=== PATIENT | male | born 1955 | race Caucasian/White ===

== ENCOUNTER 2021-04-05 17:05 | Emergency (ER) | payer OTHER ==
[2021-04-05 18:33] LABS: BASOPHILS # (AUTO) 0.1 10^3/uL (0.0-0.1); BASOPHILS % (AUTO) 1.2 %; EOSINOPHILS # (AUTO) 0.5 10^3/uL (0.0-0.7); EOSINOPHILS % (AUTO) 6.1 %; HCT - HEMATOCRIT 44.8 % (42.0-52.0); LYMPHOCYTES # (AUTO) 1.8 10^3/uL (1.5-3.5); LYMPHOCYTES % (AUTO) 21.6 %; MEAN CORPUSCULAR HEMOGLOBIN 34.1 pg (27.0-31.0); MEAN CORPUSCULAR HGB CONC 33.5 g/dL (32.0-36.0); MEAN CORPUSCULAR VOLUME 101.8 fL (80.0-94.0); MEAN PLATELET VOLUME 10.7 fL (7.4-11.4); MONOCYTES # (AUTO) 0.5 10^3/uL (0.0-1.0); MONOCYTES % (AUTO) 6.2 %; NEUTROPHILS # (AUTO) 5.3 10^3/uL (1.5-6.6); NEUTROPHILS % (AUTO) 64.7 %; PLT - PLATELET COUNT 155 10^3/uL (130-450); RED CELL DISTRIBUTION WIDTH 11.9 % (12.0-15.0); WHITE BLOOD COUNT 8.3 x10^3/uL (4.8-10.8)
--- NOTE | 2021-04-05 18:33 | XRAY Report ---
PROCEDURE: Chest 1 View X-Ray INDICATIONS: Chest Pain TECHNIQUE: One view of the chest was acquired. COMPARISON: None FINDINGS: Surgical changes and devices: None. Lungs and pleura: No pleural effusions or pneumothorax. Hyperexpanded and hyperlucent lungs consiste nt with emphysema and COPD. No focal air space opacity identified. Mediastinum: Mediastinal contours appear normal. Heart size is normal. Bones and chest wall: No suspicious bony lesions. Overlying soft tissues appear unremarkable. IMPRESSION: No acute air space opacity identified. Findings COPD and emphysema. Reviewed by: Lamberto Goodrich MD on 04/05/2021 5:32 PM [facility] Approved by: Lamberto Goodrich MD on 04/05/2021 5:32 PM [facility] Station ID: [id number]
[2021-04-05 18:46] LABS: ALBUMIN 4.3 g/dL (3.2-5.5); ALBUMIN/GLOBULIN RATIO 1.3 (1.0-2.2); CALCIUM 9.4 mg/dL (8.5-10.3); CREATININE 0.8 mg/dL (0.6-1.2); POTASSIUM 4.3 mmol/L (3.5-5.0); TOTAL PROTEIN 7.5 g/dL (6.7-8.2)
[2021-04-05] MEDS ORDERED: IPRATROPIUM/ALBUTEROL 3 ML NEB INH STA (19:31)
[2021-04-05] MEDS ORDERED: predniSONE 20 MG TABLET PO STA (19:34)
--- NOTE | 2021-04-05 19:34 | ED Physician Documentation ---
History of Present Illness - Stated complaint Stated Complaint: SOA - Chief complaint Chief Complaint: Resp - Additonal information Additional information: 65-year-old male who has a history of COPD dependent on 2 L nasal cannula presents the emergency department with worsening shortness of air. He traveled here from [facility] 1 week ago. Unfortunately he did not travel with his Spiriva or Symbicort. He became in possession of the Symbicort today but still does not have the Spiriva. Since arriving here he has worsening shortness of air especially at night when supine. Some increased shortness of air with ambulation. No chest pain. No fevers. Cough is dry nonproductive. Fully vaccinated for COVID-19. He is smoking on average of 1 to 2 cigarettes daily. Review of Systems Constitutional: denies: Fever, Chills Eyes: reports: Reviewed and negative Nose: reports: Reviewed and negative Throat: reports: Reviewed and negative Cardiac: reports: Reviewed and negative Respiratory: reports: Dyspnea, Cough. denies: Hemoptysis, Wheezing : reports: Reviewed and negative Skin: reports: Reviewed and negative PD PAST MEDICAL HISTORY - Past Medical History Past Medical History: Yes Respiratory: COPD Psych: Depression - Past Surgical History Past Surgical History: Yes - Present Medications Home Medications: Ambulatory Orders Medication Instructions Recorded Confirmed Azithromycin [Zithromax] 250 mg PO UD 5 Days #6 tablet 04/05/21 Tiotropium Kenvir [Spiriva] 1 puffs INH DAILY 30 Days #1 each 04/05/21 predniSONE [Deltasone] 40 mg PO DAILY 5 Days #10 tablet 04/05/21 - Allergies Allergies/Adverse Reactions: Allergies Allergy/AdvReac Type Severity Reaction Status Date / Time No Known Drug Allergies Allergy Verified 04/05/21 17:13 - Social History Does the pt smoke?: Yes Smoking Status: Former smoker Does the pt drink ETOH?: No Does the pt have substance abuse?: No - Immunizations Immunizations are current?: Yes - POLST Patient has POLST: No PD ED PE NORMAL - General General: Alert and oriented X 3, No acute distress, Well developed/nourished - HEENT HEENT: PERRL, Moist mucous membranes - Neck Neck: Supple, no meningeal sign - Cardiac Cardiac: RRR, No murmur, No gallop - Respiratory Respiratory: No respiratory distress, Other (Faint global expiratory wheeze. No distress or stridor.) - Abdomen Abdomen: Normal bowel sounds, Soft, Non tender, Non distended Results - Vitals Vitals: Vital Signs - 24 hr 04/05/21 04/05/21 04/05/21 17:08 18:56 19:00 Temperature 36.3 C L Heart Rate 88 72 72 Respiratory 24 22 20 Rate Blood Pressure 129/55 L 141/74 H 128/74 O2 Saturation 100 100 100 04/05/21 04/05/21 19:49 20:00 Temperature Heart Rate 72 66 Respiratory 16 21 Rate Blood Pressure 141/78 H O2 Saturation 99 Oxygen O2 Source Nasal cannula Oxygen Flow Rate 2 - EKG (time done) 1841 Rate: Rate (enter#) (67) Rhythm: NSR [place]: LAD Intervals: Normal MO. No: Prolonged QT Ischemia: Non specific changes Compare to prior EKG: Old EKG unavailable Computer interpretation: Agree with computer - Labs Labs: Laboratory Tests 04/05/21 04/05/21 04/05/21 18:24 18:24 18:24 WBC 8.3 RBC 4.40 L Hgb 15.0 Hct 44.8 MCV 101.8 H MCH 34.1 H MCHC 33.5 RDW 11.9 L Plt Count 155 MPV 10.7 Neut # (Auto) 5.3 Lymph # (Auto) 1.8 Morton # (Auto) 0.5 Eos # (Auto) 0.5 Baso # (Auto) 0.1 Absolute Nucleated RBC 0.00 Nucleated RBC % 0.0 Sodium 133 L Potassium 4.3 Chloride 93 L Carbon Dioxide 32 Anion Gap 8.0 BUN 12 Creatinine 0.8 Estimated GFR (MDRD) 97 Glucose 81 Calcium 9.4 Total Bilirubin 1.0 AST 29 ALT 20 Alkaline Phosphatase 69 Troponin I High Sens 10.9 B-Natriuretic Peptide Total Protein 7.5 Albumin 4.3 Globulin 3.2 Albumin/Globulin Ratio 1.3 Lipase 53 H 04/05/21 18:24 WBC RBC Hgb Hct MCV MCH MCHC RDW Plt Count MPV Neut # (Auto) Lymph # (Auto) Morton # (Auto) Eos # (Auto) Baso # (Auto) Absolute Nucleated RBC Nucleated RBC % Sodium Potassium Chloride Carbon Dioxide Anion Gap BUN Creatinine Estimated GFR (MDRD) Glucose Calcium Total Bilirubin AST ALT Alkaline Phosphatase Troponin I High Sens B-Natriuretic Peptide 48 Total Protein Albumin Globulin Albumin/Globulin Ratio Lipase - Rads (name of study) CXR Radiology: Final report received (No acute airspace opacity identified) PD MEDICAL DECISION MAKING - ED course Complexity details: reviewed results, re-evaluated patient, considered differential, d/w patient ED course: 65-year-old male who has a history of COPD and is oxygen dependent at baseline 2 L nasal cannula presents with worsening shortness of air and exertional dyspnea for the last week. He recently traveled to [facility] and unfortunately was without his Spiriva and Symbicort. He did receive his Symbicort inhaler today. On exam he had scattered expiratory wheezes which markedly improved after albuterol nebulizer at the bedside. Chest x-ray is without acute focal opacity. I suspect COPD after exacerbation in the setting of recent travel as well as being out of his maintenance medications. Screening labs including a troponin were negative. BNP is not elevated. EKG is nonischemic. A prescription for azithromycin and prednisone was sent to the [facility] in [place]. I have also written a prescription for the Spiriva. The patient plans to stay on the redfield for an additional 2 weeks before returning to [facility]. Emergent worrisome return precautions were discussed. Departure - Departure Disposition: 01 Home, Self Care Clinical Impression: COPD with exacerbation Condition: Stable Record reviewed to determine appropriate education?: Yes Instructions: COPD Dc Prescriptions: predniSONE [Deltasone] 40 mg PO DAILY 5 Days #10 tablet Tiotropium Kenvir [Spiriva] 1 puffs INH DAILY 30 Days #1 each Azithromycin [Zithromax] 250 mg PO UD 5 Days #6 tablet Comments: [place] were seen in the emergency department today with increasing shortness of breath after recently traveling to [facility]. It sounds like you have been out of the Symbicort and Spiriva for over a week though today you do have the Symbicort. You are having a COPD exacerbation. Your chest x-ray does not show any worrisome findings. We did give you an albuterol nebulizer here in the ER which did improve your symptoms. We also gave you your first dose of steroids. To help treat this exacerbation I am sending a prescription for an additional 5 days of steroids, azithromycin an antibiotic as well as a new Spiriva prescription to the [facility] in [place]. With this treatment in the ER and with the steroids I would expect her shortness of breath to be getting better over the next 3 to 4 days. If despite this your symptoms are worsening, you develop fevers, have chest pain, any fainting episodes or you require more than 4 L of oxygen at home then please return immediately to the ER for a second evaluation.
[2021-04-05 20:23] VITALS: BP 135/77
== END 2021-04-05 20:27 | disposition home or self-care (01) ==
LOC: ED 17:05
DX: J44.1 Chronic obstructive pulmonary disease with (acute) exacerbation (principal); Z99.81 Dependence on supplemental oxygen; F17.210 Nicotine dependence, cigarettes, uncomplicated; I49.1 Atrial premature depolarization
CPT/HCPCS: 36415; 71045; 80053; 83690; 83880; 84484; 85025; 93005; 94640; 99284; J7512